=== PATIENT | female | born 1940 | race Caucasian/White ===

== ENCOUNTER 2020-05-21 10:20 | Emergency (ER) | payer OTHER, BC ==
--- NOTE | 2020-05-21 10:35 | PDOC ---
Rapid Medical Evaluation Chief Complaint: Injury Time Seen by Provider: 05/21/20 10:33 Medical Evaluation: Allergies Allergy/AdvReac Type Severity Reaction Status Date / Time No Known Allergies Allergy Verified 11/11/11 09:57 05/21/20 10:33 CC: mechanical fall 2 days ago, now this am with difficulty walking because of left knee and ankle pain, denies back pain or abd pain Exam: mild edema to left ankle with FROM, tenderness to patella generally, no crepitus with movement but limited movement due to discomfort Plan: knee and ankle xray Discharge Disposition - Diagnosis Injury - Discharge Dispostion Condition at time of disposition: Stable - Referrals Referrals: Marcelo Saenz [Primary Care Provider] - - Patient Instructions - Post Discharge Activity
[2020-05-21 10:36] VITALS: BP 157/69; PULSE 76; TEMP 97.8; BMI 26.6
[2020-05-21] MEDS ORDERED: IBUPROFEN 600 MG TABLET (FP) PO ONE ×2 (11:04)
--- NOTE | 2020-05-21 11:10 | PDOC ---
History of Present Illness - General Chief Complaint: Injury Stated Complaint: Injury Time Seen by Provider: 05/21/20 10:33 History Source: Patient Exam Limitations: No Limitations - History of Present Illness Initial Comments: 05/21/20 11:04 Patient is a 79-year-old female who presents to the ED with complaint of left knee pain after a trip and fall 2 days ago. She forgot there were 2 steps going up to her room and tripped on the steps landing directly onto her knee. She had been okay for the last 2 days and walking on the knee. She states today she went to [place] and after [place] she was unable to bear weight. There is no one on the computer today she could use it she denies any numbness or tingling. She states the knee has been swelling. She took 2 Advil last night and helped her pain. She denies any past medical history or allergies to medications. Past History - Medical History Allergies/Adverse Reactions: Allergies Allergy/AdvReac Type Severity Reaction Status Date / Time No Known Allergies Allergy Verified 11/11/11 09:57 Home Medications: Ambulatory Orders Ascorbic Acid [Vitamin C -] 500 mg PO DAILY 11/11/11 Baby Aspirin 81 PO DAILY 11/11/11 Calcium Acetate 1 PO DAILY 11/11/11 Anemia: No Asthma: No Cancer: No Cardiac Disorders: Yes (ARRYTHMIA) CVA: No COPD: No CHF: No Dementia: No Diabetes: No GI Disorders: No Disorders: No HTN: No Hypercholesterolemia: Yes Liver Disease: No Seizures: No Thyroid Disease: No - Surgical History Orthopedic Surgery: No - Immunization History Immunization Up to Date: No - Psycho-Social/Smoking History Smoking History: Never smoked Have you smoked in the past 12 months: No Information on smoking cessation initiated: No - Substance Abuse Hx (Audit-C & DAST Scrn) How often the patient has a drink containing alcohol: Never Score: In Men: 4 or > Positive; In Women: 3 or > Positive: 0 Screen Result (Pos requires Nsg. Audit-10AR): Negative In the last yr the pt used illegal drug/Rx for NonMed reason: No Score: Yes response is considered Positive: 0 Screen Result (Positive result requires Nsg. DAST-10): Negative Review of Systems - Review of Systems Comments:: 05/21/20 11:05 - Review of Systems Able to Perform ROS?: Yes Constitutional: No: Fever, Chills, Loss of Appetite, Night Sweats, Weakness HEENTM: No: Eye Pain, Vision changes, Ear Pain, Throat Pain, Throat Swelling, Mouth Pain, Difficulty Swallowing Respiratory: No: Cough, Shortness of Breath, Wheezing, Sputum Production Cardiac (ROS): No: Chest Pain, Chest Tightness, Palpitations, Irregular Heart Beat, Edema ABD/GI: No: Nausea, Vomiting, Abdominal Pain, Diarrhea : No Dysuria, No Hematuria, No Frequency, No Urgency Musculoskeletal: No: Muscle Pain, Back Pain, Muscle Weakness, Neck Pain; positive: Left knee pain/injury Integumentary: No: Lesions, Rash Neurological: No: Headache, Numbness, Tingling, Weakness, Speech Difficulties *Physical Exam - Vital Signs Last Vital Signs Temp Pulse Resp BP Pulse Ox 97.8 F 76 16 157/69 98 05/21/20 10:33 05/21/20 10:33 05/21/20 10:33 05/21/20 10:33 05/21/20 10:33 - Physical Exam 05/21/20 11:06 - Physical Exam General Appearance: Nourished, Appropriately Dressed, No Distress HEENT: EOMI, Normal Voice, Hearing Grossly Normal Neck: Supple, No Lymphadenopathy (R), No Lymphadenopathy (L), No Rigidity, No Decreased range of motion Respiratory/Chest: Lungs Clear, Normal Breath Sounds. No Respiratory Distress, No Accessory Muscle Use Cardiovascular: Regular Rhythm, Regular Rate, S1, S2 Gastrointestinal/Abdominal: Normal Bowel Sounds, Soft. Non-tender, No Guarding, No Rebound, No Rigidity Musculoskeletal: Normal Inspection. Left knee with a large effusion appreciated. There is slight ecchymosis and an abrasion laterally. There is no significant pain to the tibial plateau region, patella or medial or laterally. Patient is able to straight leg raise. No calf tenderness to palpation. EHL intact. DP and PT pulses intact. No left ankle tenderness to palpation. There is some left ankle swelling appreciated. Extremity: Normal Capillary Refill, Normal Inspection Integumentary: Normal Color, Dry. No Rash Neurologic: legal department manager II-XII NML intact, Fully Oriented, Alert, Normal Mood/Affect, Normal Response ED Treatment Course - RADIOLOGY Radiology Studies Ordered: Category Date Time Status LOWER EXTREMITY CT W/O CONTR [CT] Stat CT Scan 05/21/20 11:00 Ordered Medical Decision Making - Medical Decision Making 05/21/20 11:07 Assessment: Patient is a 79-year-old female with left knee pain and newly unable to bear weight since a fall 2 days ago. Plan: -Left knee and ankle x-rays performed in the ED. There is no obvious left tibial plateau or patellar fractures appreciated. -CT scan ordered to rule out an occult fracture since patient is unable to bear weight -Motrin 600 mg p.o. given -Will reassess 05/21/20 12:15 Patient feeling a little bit better after the Motrin. She has not tried weightbearing as of yet. She is pending CT scan read by radiology. 05/21/20 13:[address] scan shows no acute fracture. At this time, we will wrap the patient's knee with an Daniel bandage and give her crutches for support while walking. She should follow-up with orthopedics within 1 week for repeat evaluation. She can take Motrin for pain. She understands and agrees with this treatment plan and the patient is stable for discharge. Discharge - Discharge Information Problems reviewed: Yes Clinical Impression/Diagnosis: Injury Left knee pain Qualifiers: Chronicity: acute Qualified Code(s): M25.562 - Pain in left knee Condition: Stable Disposition: HOME - Follow up/Referral Referrals: Marcelo Saenz [Primary Care Provider] - Rodrigo Luis DO [Staff Physician] - 1 week - Patient Discharge Instructions Patient Printed Discharge Instructions: DI for Knee Pain, DI for Knee Effusion Additional Instructions: Ice and elevate the knee. You can alternate ice and heat to help with the fluid on the knee. Wear the Daniel bandage for support and also to help resolve the fluid on the knee. Use the crutches only for support but you are allowed to put weight on your left side. Be sure to follow-up with orthopedics within 1 week for repeat evaluation. Take Motrin/Advil or Tylenol as needed for pain. - Post Discharge Activity
== END 2020-05-21 13:45 | disposition home or self-care (01) ==
LOC: JERFT 10:20
DX: M25.562 Pain in left knee (principal); M25.572 Pain in left ankle and joints of left foot
CPT/HCPCS: 73562-TC-LT-FY; 73610-TC-LT-FY; 73700-TC-RT; 99284-25